=== PATIENT | male | born 1940 | race Caucasian/White ===

== ENCOUNTER 2020-05-09 08:00 | Outpatient (CLI) | payer MEDICARE ==
[~2020-05-09] VITALS: Ht 188 cm; Wt 108.7 kg
[2020-05-09] MEDS ORDERED: iohexol 350MG/ML 100ml bottle IV ONE (15:05)
[2020-05-09] MEDS ORDERED: iohexol 350 MG/ML 50ML vial IV ONE (15:05)
[2020-05-09] MEDS ORDERED: metoprolol tartrate 1mg/ml inj IV ONE (15:57)
[2020-05-10 17:04] VITALS: BP 142/81
--- NOTE | 2020-05-10 17:09 | NUR ---
Patient was seen today by Dr. Coyne and Dr. Reed with his present. KCCQ12, vitals and walk test performed. Patient education done. Patient was able to ask questions and discuss options of treatment.
[2020-05-15] MEDS ORDERED: ASPI-1094 PO (09:44)
[2020-05-15] MEDS ORDERED: MULT-1085 PO (09:44)
[2020-05-15] MEDS ORDERED: ATOR40TA PO (09:44)
== END 2020-05-09 23:59 | disposition home or self-care (01) ==
LOC: TAVR 08:00
PROVIDERS: ATTEND Internal Medicine Cardiovascular Disease
DX: I35.0 Nonrheumatic aortic (valve) stenosis (principal); R06.02 Shortness of breath; I65.29 Occlusion and stenosis of unspecified carotid artery
CPT/HCPCS: 36415; 71046; 71275; 74174; 80053; 85025; 85610; 85730; 87635; 93005; 93880; 94010; 94727; 94729; Q9967; J3490

== ENCOUNTER 2020-05-09 11:55 | Outpatient (CLI) | payer MEDICARE ==
[2020-05-09 13:13] LABS: BASOPHILS # (AUTO) 0.1 X10'3 (0-0.2); BASOPHILS % (AUTO) 1.1 % (0-1); EOSINOPHILS # (AUTO) 0.1 X10'3 (0-0.9); EOSINOPHILS % (AUTO) 2.4 % (0-6); HEMATOCRIT 47.5 % (42.0-52.0); HEMOGLOBIN 15.9 g/dl (14.0-17.9); LYMPHOCYTES # (AUTO) 1.1 X10'3 (1.1-4.8); LYMPHOCYTES % (AUTO) 17.7 % (21-51); MEAN CORPUSCULAR HGB CONC 33.5 g/dL (33.0-36.5); MEAN CORPUSCULAR VOLUME 92.5 FL (78-98); MEAN PLATELET VOLUME 7.8 FL (7.4-10.4); MONOCYTES # (AUTO) 0.5 X10'3 (0-0.9); MONOCYTES % (AUTO) 8.6 % (2-12); NEUTROPHILS # (AUTO) 4.2 X10'3 (1.8-7.7); NEUTROPHILS % (AUTO) 70.2 % (42-75); PLATELET COUNT 168 X10'3 (140-440); RED BLOOD COUNT 5.14 X10'6 (4.70-6.10); RED CELL DISTRIBUTION WIDTH 13.3 % (11.5-14.5)
[2020-05-09 13:23] LABS: PARTIAL THROMBOPLASTIN TIME 26 SECONDS (22-32)
[2020-05-09 13:25] LABS: ALANINE AMINOTRANSFERASE 27 U/L (12-78); ALBUMIN/GLOBULIN RATIO 0.9 (1.1-1.5); ALKALINE PHOSPHATASE 71 IU/L (46-116); ANION GAP 10 (8-16); ASPARTATE AMINO TRANSFERASE 26 U/L (10-37); BILIRUBIN,TOTAL 0.8 MG/DL (0.1-1.0); BLOOD UREA NITROGEN 20 MG/DL (7-18); BUN/CREATININE RATIO 24.7 (5.4-32.0); CALCIUM 9.3 MG/DL (8.5-10.1); CHLORIDE 106 MMOL/L (99-107); CREATININE 0.81 MG/DL (0.60-1.10); GLUCOSE 85 MG/DL (70-104); POTASSIUM 4.2 MMOL/L (3.5-5.1); SODIUM 142 MMOL/L (135-145); TOTAL CARBON DIOXIDE 25.6 MMOL/L (24-32); TOTAL PROTEIN 8.3 G/DL (6.4-8.2); eGFR > 90 ML/MIN
[2020-05-09 16:11] VITALS: BP 155/102
[2020-05-09 16:25] VITALS: BP 184/97
[2020-05-15] MEDS ORDERED: ATOR40TA PO (09:44)
[2020-05-15] MEDS ORDERED: MULT-1085 PO (09:44)
[2020-05-15] MEDS ORDERED: ASPI-1094 PO (09:44)
== END 2020-05-09 23:59 | disposition home or self-care (01) ==
LOC: RT 11:55
PROVIDERS: ATTEND Internal Medicine Cardiovascular Disease
DX: M48.54XA Collapsed vertebra, not elsewhere classified, thoracic region, initial encounter for fracture (principal); I65.23 Occlusion and stenosis of bilateral carotid arteries
CPT/HCPCS: 36415; 71046; 80053; 85025; 85610; 85730; 87635; 93005; 93880; 94010; 94727; 94729